=== PATIENT | male | born 1995 | race Two or more races ===

== ENCOUNTER 2024-04-03 18:32 | Emergency (ER) | payer MEDICAID ==
[~2024-04-03] VITALS: Ht 195.6 cm; Wt 113.4 kg
[2024-04-03] MEDS: IV NS 0.9% 1,000 ML BAG IV ONE (19:00)
[2024-04-03] MEDS: LEVETIRACETAM (500MG) 1,000 MG in IV NS 0.9% 90 ML IV SCH (19:00)
[2024-04-03] MEDS ORDERED: LEVETIRACETAM (500MG) 500 MG/5 ML VIAL IV ONE (19:17)
[2024-04-03] MEDS ORDERED: LEVE1000 PO (20:09)
[2024-04-03 22:20] VITALS: BP 129/69; TEMP 98; O2SAT 98
== END 2024-04-03 22:20 ==
LOC: ER 18:39
DX: R56.9 Unspecified convulsions (principal); R42 Dizziness and giddiness; J45.909 Unspecified asthma, uncomplicated; F19.10 Other psychoactive substance abuse, uncomplicated; F17.200 Nicotine dependence, unspecified, uncomplicated; Z60.2 Problems related to living alone
CPT/HCPCS: 99285; 96365; 70450; J7030 ×3; J1953